=== PATIENT | female | born 1955 | race Caucasian/White ===

== ENCOUNTER 2023-06-11 13:35 | Outpatient (OUT) | payer OTHER, SELFPAY ==
--- NOTE | 2023-06-11 13:46 | XR_ITS ---
[facility] [id number] Patient Name: ROBERT PATRICIO MRN: [id number] date: 1955 Sex: F Assigned Patient Location: [facility] Current Patient Location: Accession/Order Number: [id number] Exam Date: 06/11/2023 13:58 Report Date: 06/12/2023 08:51 At the request of: NICA HA Procedure: XR wrist LT min 3V PROCEDURE: XR wrist LT min 3V COMPARISON: None. HISTORY: Left Wrist Sprain FINDINGS: BONES:No acute fracture or dislocation. Moderate to severe degenerative change of the medial carpus most significant at the first carpometacarpal joint SOFT TISSUES:Negative. No visible soft tissue swelling. EFFUSION:None visible. OTHER: Negative. 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
== END 2023-06-11 13:36 | disposition home or self-care (01) ==
LOC: RAD 13:39
PROVIDERS: PCP Family Medicine; Visit Provider Nurse Practitioner Family
DX: S63.502A Unspecified sprain of left wrist, initial encounter (principal)
CPT/HCPCS: 73110

== ENCOUNTER 2023-07-04 11:58 | Outpatient (OUT) | payer OTHER, SELFPAY ==
--- OUTSIDE RECORDS SUMMARY | 2023-07-04 12:02 | XMS_ITS | CCD ---
Author Name Unknown Address [address] [place] [address] Organization [facility] Care Team Providers Care Vascular Neurologist Name Role Phone ROSEANN DRUMMOND Unavailable Unavailable PARISH BEAN Unavailable Unavailable PARISH BEAN Unavailable Unavailable Christina Chew Primary Care Provider [phone] Christina Chew MD Primary Care Provider Christina Chew MD Primary Care Provider Christina Chew MD Primary Care Provider CHRISTINA CEHW Primary Care Unavailable CHRISTINA CHEW Referring Unavailable MARYANNE TIWARI Attending Unavailable Christina Chew MD Primary Care Provider CHRISTINA CHEW Primary Care Unavailable LEO PEREZ Referring Unavailable CHRISTINA CHEW Referring Unavailable CHRISTINA CHEW Attending Unavailable CHRISTINA CHEW Primary Care Unavailable ROSE MARY FLORES Attending Unavailable CHRISTINA CHEW Referring Unavailable ROSE MARY FLORES Referring Unavailable Jacqueline Padilla Attending Unavailable Allergies Allergy Classification Reported Allergen(s) Allergy Type Date of Onset Reaction(s) Facility (2 sources) Penicillin; Translations: [PENICILLIN] Drug Allergy 8 [facility] Repository (12 sources) Penicillins Propensity to adverse reactions to drug 2 [place] [place] (1 source) Penicillins Propensity to adverse reactions to drug 2 [facility] Medications Current Medications Medication Drug Class(es) Dates Sig (Normalized) Sig (Original) amLODIPine 5 mg oral tablet (5 sources) Dihydropyridine Calcium Channel Wally Start: 12-23-2022 take 1 tablet by mouth once daily amLODIPine (NORVASC) 5 MG tablet TAKE 1 TABLET BY MOUTH EVERY DAY 90 tablet 1 12/23/2022 Active Start: 12-25-2021 take 1 tablet by andriy th once daily amLODIPine (NORVASC) 5 MG tablet TAKE 1 TABLET BY MOUTH EVERY DAY 90 tablet 1 12/25/2021 Active Start: 12-28-2020 take 1 tablet by andriy th once daily amLODIPine (NORVASC) 5 MG tablet TAKE 1 TABLET BY MOUTH EVERY DAY 90 tablet 1 06/28/2021 Active betamethasone 0.5 mg/ml / clotrimazole 10 mg/ml topical cream (3 sources) Azole Antifungal, Corticosteroid Start: 06-29-2020 clotrimazole-betamethasone (LOTRISONE) 1-0.05 % cream Apply topically 2 times daily. 45 g 1 06/29/2020 Active hydroCHLOROthiazide 25 mg oral tablet (13 sources) Thiazide Diuretic Start: 12-23-2022 take 1 tablet by mouth once daily hydroCHLOROthiazide (HYDRODIURIL) 25 MG tablet TAKE 1 TABLET BY MOUTH EVERY DAY 90 tablet 1 12/23/2022 Active Start: 12-25-2021 take 1 tablet by andriy th once daily hydroCHLOROthiazide (HYDRODIURIL) 25 MG tablet TAKE 1 TABLET BY MOUTH EVERY DAY 90 tablet 1 12/25/2021 Active Start: 06-26-2021 take 1 tablet by andriy th once daily hydroCHLOROthiazide (HYDRODIURIL) 25 MG tablet TAKE 1 TABLET BY MOUTH EVERY DAY 90 tablet 1 06/26/2021 Active Start: 11-12-2019 take 1 tablet by andriy th once daily hydroCHLOROthiazide (HYDRODIURIL) 25 MG tablet TAKE 1 TABLET BY MOUTH EVERY DAY 90 tablet 1 12/28/2020 Active levothyroxine sodium 0.112 mg oral tablet (13 sources) l-Thyroxine Start: 12-26-2022 take 1 tablet by mouth once daily levothyroxine (SYNTHROID) 112 MCG tablet TAKE 1 TABLET BY MOUTH EVERY DAY 90 tablet 1 12/26/2022 Active Start: 01-11-2022 take 1 tablet by andriy th once daily levothyroxine (SYNTHROID) 112 MCG tablet TAKE 1 TABLET BY MOUTH EVERY DAY 90 tablet 1 01/11/2022 Active Start: 07-13-2021 take 1 tablet by andriy th once daily levothyroxine (SYNTHROID) 112 MCG tablet TAKE 1 TABLET BY MOUTH EVERY DAY 90 tablet 1 07/13/2021 Active Start: 11-08-2019 take 1 tablet by andriy th once daily levothyroxine (SYNTHROID) 112 MCG tablet TAKE 1 TABLET BY MOUTH EVERY DAY 90 tablet 1 12/28/2020 Active montelukast 10 mg oral tablet (13 sources) Leukotriene Receptor Antagonist Start: 11-06-2021 take 1 tablet by mouth once daily montelukast (SINGULAIR) 10 MG tablet Indications: Seasonal allergies TAKE 1 TABLET BY MOUTH EVERY DAY AT NIGHT 90 tablet 1 11/06/2021 Active Start: 05-14-2021 take 1 tablet by andriy th once daily montelukast (SINGULAIR) 10 MG tablet Indications: Seasonal allergies TAKE 1 TABLET BY MOUTH EVERY DAY AT NIGHT 90 tablet 1 05/14/2021 Active Start: 07-01-2019 take 1 tablet by andriy th once daily montelukast (SINGULAIR) 10 MG tablet Indications: Seasonal allergies TAKE 1 TABLET BY MOUTH EVERY DAY AT NIGHT 90 tablet 1 11/10/2020 Active Problems Problem Classification Problem Date Documented Da te Episodic/Chronic Disorders of lipid metabolism (14 sources) Hypercholesterolem ia; Translations: [Pure hypercholesterolem ia, unspecified] Onset: 05-14-2018 05-14-2018 Chronic Essential hypertension (14 sources) Essential hypertension; Translations: [Essential (primary) hypertension] Onset: 02-18-2017 02-18-2017 Chronic Nonmalignant breast conditions (1 source) Large breast; Translations: [Hypertrophy of breast] Episodic Other nervous system disorders (2 sources) Carpal tunnel syndrome, bilateral upper limbs; Translations: [Carpal tunnel syndrome, bilateral upper limbs] Onset: 04-09-2018 Other non-traumatic joint disorders (1 source) Knee pain; Translations: [Acute pain of left knee] Episodic Other screening for suspected conditions (not mental disorders or infectious disease) (3 sources) Patient encounter status; Translations: [Encounter for screening mammogram for malignant neoplasm of breast] Onset: 01-24-2023 Episodic Regional enteritis and ulcerative colitis (12 sources) Ulcerative colitis; Translations: [Ulcerative colitis, unspecified, without complications] Onset: 07-04-2011 03-09-2015 Chronic Residual codes; unclassified (2 sources) Edema of lower extremity; Translations: [Edema of left lower extremity] Episodic Residual codes; unclassified (1 source) Localized edema; Translations: [Edema of left lower extremity] Episodic Spondylosis; intervertebral disc disorders; other back problems (1 source) Chronic back pain ; Translations: [Dorsalgia, unspecified] Episodic Sprains and strains (2 sources) Strain of muscle, fascia and tendon at neck level, initial encounter; Translations: [Strain of muscle, fascia and tendon at neck level, initial encounter] Onset: 04-09-2018 Episodic Thyroid disorders (15 sources) Hypothyroidism; Translations: [Hypothyroidism, unspecified] Onset: 03-23-2015 03-23-2015 Chronic Unclassified (1 source) Patient encounter status; Translations: [Visit for screening mammogram] Results Test Name Value Interpretation Reference Range Facility Consent for Treatmenton 05-09 Consent for Treatment [id number] .00TIFF Normal [facility] Discharge Instructionson Discharge Instructions [id number]# 1.00TIFF Normal [facility] ED Clinical Summaryon 2022 ED Clinical Summary [place] [id number] ED Clinical Summary Person Information Name: HAYDEE PATRICIO/[facility] Age: 67 Years : 1955 Sex: Female Language: Panamanian PCP: CHRISTINA CHEW MD Marital Status: Visit Id: Visit Reason: Fall; Wrist pain-swelling; Wrist injury - Minor; FALL- LEFT WRIST INJURY Speciality: Acuity: 4 Enc Type: Emergency Med Service: Emergency Arrival: 05/25/2023 11:02:52 Discharge: 05/25/2023 13:31:09 LOS: 000 02:29 Checkin: 05/25/2023 11:02:52 Checkout: 05/25/2023 13:31:09 Dispo Type: Home (Routine DC) EVENTS: Event Name Event Status Request Date/Time Start Date/Time Complete Date/Time Arrive Complete 05/25/2023 11:02:52 05/25/2023 11:02:52 05/25/2023 11:02:52 Document Home Meds Request 05/25/2023 11:02:52 Triage Complete 05/25/2023 11:02:52 05/25/2023 11:21:22 05/25/2023 11:21:22 Registration Complete 05/25/2023 11:11:52 05/25/2023 11:11:52 05/25/2023 11:11:52 Reg Complete Request 05/25/2023 11:11:52 Reg Bed Request Complete 05/25/2023 11:11:52 05/25/2023 11:11:52 05/25/2023 11:11:52 Workers Comp Request 05/25/2023 11:21:23 X-Ray Complete 05/25/2023 11:24:29 05/25/2023 11:26:29 05/25/2023 11:35:01 Wet Read Request 05/25/2023 11:35:01 Dr Exam Complete 05/25/2023 11:54:38 05/25/2023 11:54:38 05/25/2023 11:54:38 Registration Start 05/25/2023 11:54:38 05/25/2023 11:54:59 Bed Assign Complete 05/25/2023 11:54:59 05/25/2023 11:54:59 05/25/2023 11:54:59 RN Exam Complete 05/25/2023 11:54:59 05/25/2023 12:35:22 05/25/2023 12:35:22 Discharge Complete 05/25/2023 12:53:44 05/25/2023 13:31:16 05/25/2023 13:31:16 Transfer Complete 05/25/2023 13:31:16 05/25/2023 13:31:16 05/25/2023 13:31:16 ADDRESS: [facility] [address] [place] [id number] [facility] DOC NOTES: MEDICAL INFORMATION: Prescriptions Given: Medications to Continue with No Changes Other Medications hydrochlorothiazide 25 Milligram By Mouth every day. levothyroxine 112 Microgram By Mouth every day. mesalamine (Lialda 1.2 g oral enteric coated tablet) 2 Tablets By Mouth every day. Refills: 1. PATIENT EDUCATION INFORMATION: Instructions: Wrist Splint or Brace, Adult; Wrist Sprain, Adult Follow up: With: Address: When: Occupational Health: [facility] [phone] In 2 days 05/27/2023 Comments: Return to the emergency room if your pain gets worse or any new symptoms. With: Address: When: CHRISTINA CHEW [address] [place] [address] [place] (1) In 3 days DIAGNOSIS: 1:Left wrist sprain [facility] ED Note-Physicianon 05-25-20 ED Note-Physician Basic Information Time Seen: Jacqueline Padilla M.D. 05/25/2023 11:54 Chief Complaint Pt presents to ED with complaints of left wrist pain after injury while working yesterday morning. History of Present Illness The patient is 67-year-old female who presented to the emergency room with left wrist pain. The patient states she works for the [employer] and yesterday she was stepping on the curb where her heel hit the curb and she lost her balance fell backward. The patient states she landed on her left hand. She denies hitting her head. Denies any headache, denies any neck pain. The patient denies any back pain. She points on the dorsal aspect of the wrist for the pain. The patient denies any other associated symptoms or any other injuries. Review of Systems Additional ROS info: Except as noted in the above Review of Systems and in the History of Present Illness all other systems have been reviewed and are negative or noncontributory. Physical Exam Vitals & Measurements T: 37.8 ?C(Oral) HR: 82(Peripheral) RR: 18 BP: 131/85 SpO2: 96% HT: 167 cm WT: 84 kg BMI: 30.12 General: alert, no acute distress Skin: warm, dry Head: no trauma, normocephalic Neck: Trachea midline, no tenderness, supple Eye: normal conjunctiva, sclera clear Cardiovascular: regular rate and rhythm Respiratory: Lungs CTA, respirations non labored, breath sounds equal Extremities: no deformity, there is swelling on the dorsal aspect of the left wrist with generalized tenderness to palpation on the dorsal aspect of the wrist. Full range of motion. Neurological: Alert and oriented, speech normal, no focal neuro deficits Psychiatric: cooperative, affect appropriate for age Medical Decision Making MEDICAL DECISION MAKING Number and Complexity of Problems Differential Diagnosis: [] [facility] Data External documents reviewed: [] My EKG interpretation: [] My CT interpretation: [] My X-ray interpretation: [] My Ultrasound interpretation: [] Decision rules/scores evaluated: [] Discussed with: [] Treatment and Disposition ED Course: The patient presented with left wrist injury. The x-ray shows no fracture no dislocation. Velcro splint was applied. The patient declined pain medication in the emergency room. Will discharge patient home follow-up with occupational health. She is instructed to return to the emergency room if her pain gets worse or any new symptoms. Shared decision making: [] Code status: [] Assessment/Plan 1. Left wrist sprain (S63.502A: Unspecified sprain of left wrist, initial encounter) Orders: Splint Application Wrist XR Wrist 3+ Views Left Disposition Plan Patient Discharge Condition Stable Discharge Disposition Discharge home Discharge Prescription List Prescriptions No active prescription medications Follow-up With When Contact Information Occupational Health: [facility] [phone] In 2 days 05/27/2023 EST Additional Instructions: Return to the emergency room if your pain gets worse or any new symptoms. CHRISTINA CHEW In 3 days [address] [place] [address] [facility] (1) Additional Instructions: Patient Education Wrist Splint or Brace, Adult Wrist Sprain, Adult Problem List/Past Medical History Ongoing No qualifying data Historical menopause Procedure/Surgical History section, Hysterectomy, left toe surgery. Medications Inpatient No active inpatient medications Home hydrochlorothiazide, 25 mg, Oral, Daily levothyroxine, 112 mcg, Oral, Daily Lialda 1.2 g oral enteric coated tablet, 2.4 gm= 2 tab(s), Oral, Daily, 1 refills Allergies penicillin (Rash) Social History Alcohol - Medium Risk, 07/03/2013 Current, Wine, Daily, 07/03/2013 Substance Abuse - Denies Substance Abuse, 07/12/2010 Tobacco - Denies Tobacco Use, 07/12/2010 Lab Results No qualifying data available. Diagnostic Results XR Wrist 3+ Views Left 05/25/23 12:14:27 : No fracture, dislocation or other acute abnormality Read By: Jacqueline Padilla M.D. 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 NO FRACTURE. EXAM: Left wrist, 4 views. CLINICAL HISTORY: Pain, Traumatic COMPARISON: None FINDINGS: AP, lateral, oblique and navicular views of the left wrist. Mild osteopenia. Narrowing of first carpal metacarpal joint with hypertrophic osseous change and increase sclerosis of the opposing articular surfaces. No fracture, dislocation, or bone lesion. Ordering Provider: Jacqueline Padilla Signed By: Ousmane Nunez MD [facility] Comment on above: Result Comment: Elec tronically Signed By: Valerie Capps, Jacqueline Wolfe\.br\Date and Time Signed: 05/25/23 12:54 EST ED Patient Education Noteon 05-25-2023 ED Patient Education Note Orthopedics Wrist Splint or Brace, Adult A wrist splint or brace is a device that prevents your wrist from moving. A splint supports your wrist like a cast, but is more flexible and can be adjusted more easily than a cast. A wrist brace provides support as well but is generally less rigid. A brace is given for local intermodal truck driver use while a splint is given for short term use. Wrist splints and braces can be removed or loosened. A splint or brace is held in place with an elastic band or straps. The supporting part of a splint or brace does not always completely surround your wrist. You may need a wrist splint or brace if you have hurt your wrist or if you have a condition that causes swelling. The wrist splint or brace may be worn: ? To support your wrist. ? To protect your injury. ? To prevent further injury. ? To prevent movement. ? To reduce pain. ? To help with healing. It is important to follow instructions from your health care provider about when to wear the splint or brace to make sure your wrist heals correctly. What are the risks? The most dangerous risk of wearing a splint or brace is reduced blood flow to your wrist or hand. This can happen if there is a lot of swelling or if the splint or brace is too tight. Reduced blood supply results in a condition called compartment syndrome and can cause permanent damage. Symptoms include: ? Pain that is getting worse. ? Tingling and numbness. ? Changes in skin color, including paleness or a bluish color. ? Cold fingers. Other problems can include: ? Skin irritation that can cause itching, rash, skin sores, or skin infection. ? Wrist stiffness. This can occur if you have worn a splint for a long time. ? Wrist weakness. How to wear your wrist splint or brace Your wrist splint or brace should be tight enough to support your wrist without blocking your blood supply. How long you need to wear the splint or brace depends on the type of wrist problem you have. Your health care provider will instruct you about how to wear your wrist splint or brace and how long to wear it. ? Wear the splint or brace as told by your health care provider. Remove it only as told by your health care provider. ? Loosen the splint or brace if your fingers tingle, become numb, or turn cold and blue. ? Do not stick anything inside the splint or brace to scratch your skin. Doing that increases your risk of infection. ? Check the skin under the splint or brace for any redness or blisters every time you take off the splint. Tell your health care provider about any concerns. ? Keep the splint clean. ? If the splint or brace is not waterproof: ? Do not let it get wet. ? Cover it with a watertight covering when you take a bath or a shower. General recommendations ? Do not put pressure on any part of the splint until it is fully hardened. This may take several hours. ? Follow directions from your health care provider or the splint bull gang worker for cleaning and caring for your splint or brace. It is important to clean it regularly. Make sure it is completely dry before putting in on. Follow these instructions at home: Managing pain, stiffness, and swelling ? If directed, put ice on the injured area. ? If you a have a removable splint or brace, remove it as told by your health care provider. ? Put ice in a plastic bag. ? Place a towel between your skin and the bag. ? Leave the ice on for 20 minutes, 2?3 times a day. ? Remove the ice if your skin turns bright red. This is very important. If you cannot feel pain, heat, or cold, you have a greater risk of damage to the area. ? Move your fingers often to avoid stiffness and to lessen swelling. ? Raise the injured area above the level of your heart while you are sitting or lying down. Activity ? Do exercises as told by your health care provider. ? Ask your health care provider when it is safe to drive with a splint or brace on your wrist. ? Return to your normal activities as told by your health care provider. Ask your health care provider what activities are safe for you. General instructions ? Do not use the injured hand to do heavy work, such as lifting, pulling, or pushing. ? Do not use any products that contain nicotine or tobacco, such as cigarettes, e-cigarettes, and chewing tobacco. These can delay bone healing. If you need help quitting, ask your health care provider. ? Take rrni-ynx-dirfpvz and prescription medicines only as told by your health care provider. ? Keep all follow-up visits. This is important. Contact a health care provider if: ? You have wrist pain or swelling that does not go away. ? The skin around or under your splint becomes red, itchy, or moist. ? You have chills or a fever. ? Your splint or brace feels too tight or too loose. ? Your splint or brace gets damaged. Get help right away if: ? You have pain that is getting worse. ? You have (more content not included)... [facility] ED Patient Summaryon 023 ED Patient Summary [place] [id number] Patient Discharge Instructions Person Information Name: HAYDEE PATRICIO Age: 67 Years Arrival Date: 05/25/2023 11:02:52 Discharge Diagnosis: 1:Left wrist sprain Primary Care Physician: MILTON BURR, CHRISTINA Le Provider Information Primary Provider: Jacqueline Padilla M.D. Advanced Stenotypist:None The exam and treatment you received in the Emergency Department were for an urgent problem and are not intended as complete care. It is important that you follow up with a doctor, nurse practitioner, or physician?s social media assistant for ongoing care. If your symptoms become worse or you do not improve as expected and you are unable to reach your usual health care provider, you should return to the Emergency Department. We are available 24 hours a day. HAYDEE PATRICIO has been given the following list of patient education materials, prescriptions and follow-up instructions: Follow-up Instructions: With: Address: When: Occupational Health: [facility] [phone] In 2 days 05/27/2023 Comments: Return to the emergency room if your pain gets worse or any new symptoms. With: Address: When: CHRISTINA CHEW [address] [place] [address] [place] [address] [facility] (1) In 3 days In the event that this physician does not participate in your insurance network, please consult with your insurance company to find a nearby participating provider. Patient Education Materials: Wrist Splint or Brace, Adult; Wrist Sprain, Adult A MESSAGE TO ALL PATIENTS REGARDING OPIOIDS PRESCRIPTION OPIOIDS: WHAT YOU NEED TO KNOW Prescription opioids can be used to help relieve wduamprc-tm-tjtqzr pain and are often prescribed following a surgery or injury, or for certain health conditions. These medications can be an important part of the treatment but also come with serious risks. It is important to work with your healthcare provider to make sure you are getting the safest, most effective care. WHAT ARE THE RISKS AND SIDE EFFECTS OF OPIOID USE? Prescription opioids carry serious risks of addiction and overdose, especially with prolonged use. An opioid overdose, often marked by slowed breathing, can cause sudden . The use of prescription opioids can have a number of side effects as well, even when taken as directed: ? Tolerance?meaning you might need to take more of the medication for the same pain relief ? Physical dependence?meaning you have symptoms of withdrawal when a medication is stopped ? Increased sensitivity to pain ? Constipation ? Nausea, vomiting, and dry mouth ? Sleepiness and dizziness ? Confusion ? Depression ? Low levels of testosterone that can result in lower sex drive, energy, and strength ? Itching and sweating RISKS ARE GREATER WITH: ? History of drug misuse, substance use disorder, or overdose ? Mental health conditions (such as depression or anxiety) ? Sleep apnea ? Older age (65 years and older) ? Avoid alcohol while taking prescription opioids. Also, unless specifically advised by your health care provider, medications to avoid include: ? Benzodiazepines (such as Xanax or Valium) ? Muscle relaxants (such as Soma or Flexeril) ? Hypnotics (such as Ambien or Lunesta) ? Other prescription opioids KNOW YOUR OPTIONS Talk to your health care provider about ways to manage your pain that don?t involve prescription opioids. Some of these options may actually work better and have fewer risks and side effects. Options may include: ? Pain relievers such as acetaminophen, ibuprofen, and naproxen ? Some medication that are also used for depression or seizures ? Physical therapy and exercise ? Cognitive behavioral therapy, a psychological, goal-directed approach, in which patients learn how to modify physical, behavioral, and emotional triggers of pain and stress. IF YOU ARE PRESCRIBED OPIOIDS FOR PAIN: ? Never take opioids in greater amounts or more often than prescribed. ? Follow up with your primary health care provider. o Work together to create a plan on how to manage your pain. o Talk about ways to help manage your pain that don?t involve prescription opioids. o Talk about any and all concerns and side effects. ? Help prevent misuse and abuse o Never sell or share prescription opioids. o Never use another person?s prescription opioids. ? Store prescription opioids in a secure place and out of reach of others (this may include visitors, children, friends, and family). ? Safely dispose of unused prescription opioids: Find your community drug take-back program or your pharmacy mail-back program, or flush them down the toilet, following guidance from the Food and Drug Administration (www.fda.gov/Drugs/Re sourcesForYou). ? Visit www.cdc.gov/drugoverd ose to learn about the risks of opioids abuse and overdose. ? If you believ (more content not included)... 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 NO FRACTURE. EXAM: Left wrist, 4 views. CLINICAL HISTORY: Pain, Traumatic COMPARISON: None FINDINGS: AP, lateral, oblique and navicular views of the left wrist. Mild osteopenia. Narrowing of first carpal metacarpal joint with hypertrophic osseous change and increase sclerosis of the opposing articular surfaces. No fracture, dislocation, or bone lesion. Ordering Provider: Jacqueline Padilla FINAL REPORT Dictated: 05/25/2023 12:32 pm Ousmane Nunez MD Signed (Electronic Signature): 05/25/2023 12:32 pm Signed by: Ousmane Nunez MD Transcribed by: DP Technologist: TRINIDAD Technical Comments Radiation Dose: Ka,r in mGy = na DAP = na Normal [facility] CBC with Diffon 03-14-2023 Abs. Basophil 0.04 k/uL Normal 0.00-0.20 [facility] Comment on above: Performed By: #### Reilly FAST, CDP, TSHX, CP #### [facility] [address] [id number] Regulator Assembler: Gilbert Epperson MD #### LIPR #### [place] [id number] Regulator Assembler: Yariel Godinez MD Abs.Imm.Granulocyte 0.02 k/uL Normal 0.00-0.30 [facility] Comment on above: Performed By: #### Reilly FAST, CDP, TSHX, CP #### [facility] [address] [id number] Regulator Assembler: Gilbert Epperson MD #### LIPR #### [place] [id number] Regulator Assembler: Yariel Godinez MD Abs.Neutrophil (Seg) 3.26 k/uL Normal 2.5-7.0 [facility] Comment on above: Performed By: #### Z FAST, CDP, TSHX, CP #### [facility] [address] [place], [place] [id number] Regulator Assembler: Gilbert Epperson MD #### LIPR #### [address] [id number] Regulator Assembler: Yariel Godinez MD Basophils/100 WBC (Bld) 1 % Normal 0-2 [facility] Comment on above: Performed By: #### Z FAST, CDP, TSHX, CP #### [facility] [address] [place] [address] Regulator Assembler: Gilbert Epperson MD #### LIPR #### [place] [id number] Regulator Assembler: Yariel Godinez MD Eosinophils (Bld) [#/Vol] 0.19 10*3/uL Normal 0.00-0.40 [facility] Comment on above: Performed By: #### Z FAST, CDP, TSHX, CP #### [facility] [address] [place] [address] Regulator Assembler: Gilbert Epperson MD #### LIPR #### [place] [address] Regulator Assembler: Yariel Godinez MD Eosinophils/100 WBC (Bld) 4 % Normal 0-5 [facility] Comment on above: Performed By: #### Z FAST, CDP, TSHX, CP #### [facility] [address] [id number] Regulator Assembler: Gilbert Epperson MD #### LIPR #### [address] [id number] Regulator Assembler: Yariel Godinez MD Erythrocyte distribution width (RBC) [Ratio] 11.9 % Low 12.1-15.2 [facility] Comment on above: Performed By: #### Z FAST, CDP, TSHX, CP #### [facility] [address] [place], [place] [id number] Regulator Assembler: Gilbert Epperson MD #### LIPR #### [address] [id number] Regulator Assembler: Yariel Godinez MD Hematocrit (Bld) [Volume fraction] 39.0 % Normal 36.0-46.0 [facility] Comment on above: Performed By: #### Z FAST, CDP, TSHX, CP #### [facility] [address] [place] [address] Regulator Assembler: Gilbert Epperson MD #### LIPR #### [place] [id number] Regulator Assembler: Yariel Godinez MD Hemoglobin (Bld) [Mass/Vol] 13.9 g/dL Normal 12.0-16.0 [facility] Comment on above: Performed By: #### Z FAST, CDP, TSHX, CP #### [facility] [address] [place], [place] [id number] Regulator Assembler: Gilbert Epperson MD #### LIPR #### [address] [id number] Regulator Assembler: Yariel Godinez MD Immature granulocytes/100 WBC (Bld) 0 % Normal 0-5 [facility] Comment on above: Performed By: #### Z FAST, CDP, TSHX, CP #### [facility] [address] [id number] Regulator Assembler: Gilbert Epperson MD #### LIPR #### [address] [id number] Regulator Assembler: Yariel Godinez MD Lymphocytes (Bld) [#/Vol] 1.50 10*3/uL Normal 1.00-4.80 [facility] Comment on above: Performed By: #### Z FAST, CDP, TSHX, CP #### [facility] [address] [place], [place] [id number] Regulator Assembler: Gilbert Epperson MD #### LIPR #### [address] [id number] Regulator Assembler: Yariel Godinez MD Lymphocytes/100 WBC (Bld) 28 % Normal 15-40 [facility] Comment on above: Performed By: #### Z FAST, CDP, TSHX, CP #### [facility] [address] [place] [address] Regulator Assembler: Gilbert Epperson MD #### LIPR #### [address] [id number] Regulator Assembler: Yariel Godinez MD MCH (RBC) [Entitic mass] 32.1 pg Normal 26.0-34.0 [facility] Comment on above: Performed By: #### Z FAST, CDP, TSHX, CP #### [facility] [address] [place] [address] Regulator Assembler: Gilbert Epperson MD #### LIPR #### [address] [address] Regulator Assembler: Yariel Godinez MD MCHC (RBC) [Mass/Vol] 35.6 g/dL Normal 31.0-37.0 [facility] Comment on above: Performed By: #### Z FAST, CDP, TSHX, CP #### [facility] [address] [place] [address] Regulator Assembler: Gilbert Epperson MD #### LIPR #### [address] [id number] Regulator Assembler: Yariel Godinez MD MCV (RBC) [Entitic vol] 90.1 fL Normal 80.0-100.0 [facility] Comment on above: Performed By: #### Reilly FAST, CDP, TSHX, CP #### [facility] [address] [place], [place] [id number] Regulator Assembler: Gilbert Epperson MD #### LIPR #### [address] [id number] Regulator Assembler: Yariel Godinez MD Monocytes (Bld) [#/Vol] 0.37 10*3/uL Normal 0.00-1.00 [facility] Comment on above: Performed By: #### Reilly FAST, CDP, TSHX, CP #### [facility] [address] [place] [address] Regulator Assembler: Gilbert Epperson MD #### LIPR #### [address] [address] Regulator Assembler: Yariel Godinez MD Monocytes/100 WBC (Bld) 7 % Normal 4-8 [facility] Comment on above: Performed By: #### Reilly FAST, CDP, TSHX, CP #### [facility] [address] [place] [address] Regulator Assembler: Gilbert Epperson MD #### LIPR #### [address] [address] Regulator Assembler: Yariel Godinez MD Neutrophil (Seg) 61 % Normal 47-75 [facility] Comment on above: Performed By: #### Reilly FAST, CDP, TSHX, CP #### [facility] [address] [place] [address] Regulator Assembler: Gilbert Epperson MD #### LIPR #### [address] [id number] Regulator Assembler: Yariel Godinez MD Platelet mean volume (Bld) [Entitic vol] 9.2 fL Normal 6.0-12.0 [facility] Comment on above: Performed By: #### Reilly FAST, CDP, TSHX, CP #### [facility] [address] [place], [place] [phone] Regulator Assembler: Gilbert Epperson MD #### LIPR #### [address] [address] Regulator Assembler: Yariel Godinez MD Platelets (Bld) [#/Vol] 247 10*3/uL Normal 140-450 [facility] Comment on above: Performed By: #### Reilly FAST, CDP, TSHX, CP #### [facility] [address] [place], [place] [id number] Regulator Assembler: Gilbert Epperson MD #### LIPR #### [address] [address] Regulator Assembler: Yariel Godinez MD RBC (Bld) [#/Vol] 4.33 10*6/uL Normal 4.00-5.20 [facility] Comment on above: Performed By: #### Reilly FAST, CDP, TSHX, CP #### [facility] [address] [place], [place] [phone] Regulator Assembler: Gilbert Epperson MD #### LIPR #### [address] [address] Regulator Assembler: Yariel Godinez MD WBC (Bld) [#/Vol] 5.4 10*3/uL Normal 3.5-11.0 [facility] Comment on above: Performed By: #### Reilly FAST, CDP, TSHX, CP #### [facility] [address] [place], [place] [id number] Regulator Assembler: Gilbert Epperson MD #### LIPR #### [address] [address] Regulator Assembler: Yariel Godinez MD Comp Metabolic Profon 2022 Albumin [Mass/Vol] 4.5 g/dL Normal 3.5-5.2 [facility] Comment on above: Performed By: #### Z FAST, CDP, TSHX, CP #### [facility] [address] [place], [place] [phone] Regulator Assembler: Gilbert Epperson MD #### LIPR #### [address] [id number] Regulator Assembler: Yariel Godinez MD Alkaline Phos 85 U/L Normal 35-104 [facility] Comment on above: Performed By: #### Reilly FAST, CDP, TSHX, CP #### [facility] [address] [place], [place] [id number] Regulator Assembler: Gilbert Epperson MD #### LIPR #### [address] [address] Regulator Assembler: Yariel Godinez MD ALT [Catalytic activity/Vol] 21 U/L Normal 5-33 [facility] Comment on above: Performed By: #### Reilly FAST, CDP, TSHX, CP #### [facility] [address] [place] [address] Regulator Assembler: Gilbert Epperson MD #### LIPR #### [address] [address] Regulator Assembler: Yariel Godinez MD Anion gap [Moles/Vol] 12 mmol/L Normal 9-17 [facility] Comment on above: Performed By: #### Z FAST, CDP, TSHX, CP #### [facility] [address] [place], [place] [id number] Regulator Assembler: Gilbert Epperson MD #### LIPR #### [address] [id number] Regulator Assembler: Yariel Godinez MD AST [Catalytic activity/Vol] 18 U/L Normal <32 [facility] Comment on above: Performed By: #### Z FAST, CDP, TSHX, CP #### [facility] [address] [place], [place] [phone] Regulator Assembler: Gilbert Epperson MD #### LIPR #### [address] [id number] Regulator Assembler: Yariel Godinez MD Bilirubin [Mass/Vol] 0.7 mg/dL Normal 0.3-1.2 [facility] Comment on above: Performed By: #### Reilly FAST, CDP, TSHX, CP #### [facility] [address] [place], [place] [phone] Regulator Assembler: Gilbert Epperson MD #### LIPR #### [address] [id number] Regulator Assembler: Yariel Godinez MD BUN/CRE Ratio 24 High 9-20 [facility] Comment on above: Performed By: #### Reilly FAST, CDP, TSHX, CP #### [facility] [address] [place], [place] 7007[address] Regulator Assembler: Gilbert Epperson MD #### LIPR #### [address] [id number] Regulator Assembler: Yariel Godinez MD Calcium [Mass/Vol] 9.7 mg/dL Normal 8.6-10.4 [facility] Comment on above: Performed By: #### Z FAST, CDP, TSHX, CP #### [facility] [address] [place], [place] [phone] Regulator Assembler: Gilbert Epperson MD #### LIPR #### [address] [id number] Regulator Assembler: Yariel Godinez MD Chloride [Moles/Vol] 102 mmol/L Normal 98-107 [facility] Comment on above: Performed By: #### Z FAST, CDP, TSHX, CP #### [facility] [address] [place], [place] [phone] Regulator Assembler: Gilbert Epperson MD #### LIPR #### [address] [place], [place] 2726[address] Regulator Assembler: Yariel Godinez MD CO2 [Moles/Vol] 24 mmol/L Normal 20-31 [facility] Comment on above: Performed By: #### Z FAST, CDP, TSHX, CP #### [facility] [address] [place], [place] 0697[address] Regulator Assembler: Gilbert Epperson MD #### LIPR #### [address] [phone] Regulator Assembler: Yariel Godinez MD Creatinine [Mass/Vol] 0.8 mg/dL Normal 0.5-0.9 [facility] Comment on above: Performed By: #### Z FAST, CDP, TSHX, CP #### [facility] [address] [place] [address] Regulator Assembler: Gilbert Epperson MD #### LIPR #### [address] [phone] Regulator Assembler: Yariel Godinez MD GFR/1.73 sq M.predicted among non-blacks MDRD (S/P/Bld) [Vol rate/Area] mL/min/{1.73_m2} Normal >60 [facility] Comment on above: Result Comment: These results are not intended for use in patients <18 years of age. eGFR results are calculated without a race factor using the 2020 CKD-EPI equation. Careful clinical correlation is recommended, particularly when comparing to results calculated using previous equations. The CKD-EPI equation is less accurate in patients with extremes of muscle mass, extra-renal metabolism of creatine, excessive creatine ingestion, or following therapy that affects renal tubular secretion. Performed By: #### Z FAST, CDP, TSHX, CP #### [facility] [address] [place], [place] [phone] Regulator Assembler: Gilbert Epperson MD #### LIPR #### [address] [phone] Regulator Assembler: Yariel Godinez MD Glucose [Mass/Vol] 116 mg/dL High 70-99 [facility] Comment on above: Performed By: #### Z FAST, CDP, TSHX, CP #### [facility] [address] [place], [place] 94640[address] Regulator Assembler: Gilbert Epperson MD #### LIPR #### [address] [id number] Regulator Assembler: Yariel Godinez MD Potassium [Moles/Vol] 3.8 mmol/L Normal 3.7-5.3 [facility] Comment on above: Performed By: #### Z FAST, CDP, TSHX, CP #### [facility] [address] [place], [place] [phone] Regulator Assembler: Gilbert Epperson MD #### LIPR #### [address] [id number] Regulator Assembler: Yariel Godinez MD Protein [Mass/Vol] 7.0 g/dL Normal 6.4-8.3 [facility] Comment on above: Performed By: #### Z FAST, CDP, TSHX, CP #### [facility] [address] [place], [place] [phone] Regulator Assembler: Gilbert Epperson MD #### LIPR #### [address] [address] Regulator Assembler: Yariel Godinez MD Sodium [Moles/Vol] 138 mmol/L Normal 135-144 [facility] Comment on above: Performed By: #### Z FAST, CDP, TSHX, CP #### [facility] [address] [place] [address] Regulator Assembler: Gilbert Epperson MD #### LIPR #### [facility] [address] [place] [address] Regulator Assembler: Yariel Godinez MD Urea nitrogen [Mass/Vol] 19 mg/dL Normal 8-23 [facility] Comment on above: Performed By: #### Z FAST, CDP, TSHX, CP #### [facility] [address] [place], [place] [phone] Regulator Assembler: Gilbert Epperson MD #### LIPR #### [address] [address] Regulator Assembler: Yariel Godinez MD Lipid Profileon 03-14-2023 Cholesterol [Mass/Vol] 264 mg/dL High <200 [facility] Comment on above: Result Comment: Cholesterol Guidelines: <200 Desirable 200-240 Borderline >240 Undesirable Performed By: #### Z FAST, CDP, TSHX, CP #### [facility] [address] [place] [address] Regulator Assembler: Gilbert Epperson MD #### LIPR #### [address] [address] Regulator Assembler: Yariel Godinez MD Cholesterol in HDL [Mass/Vol] 78 mg/dL Normal >40 [facility] Comment on above: Result Comment: HDL Guidelines: <40 Undesirable 40-59 Borderline >59 Desirable Performed By: #### Z FAST, CDP, TSHX, CP #### [facility] [address] [place], [place] 2699[address] Regulator Assembler: Gilbert Epperson MD #### LIPR #### [address] [address] Regulator Assembler: Yariel Godinez MD Cholesterol in LDL [Mass/Vol] 157 mg/dL High 0-130 [facility] Comment on above: Result Comment: LDL Guidelines: <100 Desirable 100-129 Near to/above Desirable 130-159 Borderline >159 Undesirable Direct (measured) LDL and calculated LDL are not interchangeable tests. Performed By: #### Z FAST, CDP, TSHX, CP #### [facility] [address] [place] [address] Regulator Assembler: Gilbert Epperson MD #### LIPR #### [address] [phone] Regulator Assembler: Yariel Godinez MD Cholesterol.total/Chol esterol in HDL [Mass ratio] 3.4 {ratio} Normal <5 [facility] Comment on above: Performed By: #### Z FAST, CDP, TSHX, CP #### [facility] [address] [place] [address] Regulator Assembler: Gilbert Epperson MD #### LIPR #### [address] [id number] Regulator Assembler: Yariel Godinez MD Triglyceride [Mass/Vol] 146 mg/dL Normal <150 [facility] Comment on above: Result Comment: Triglyceride Guidelines: <150 Desirable 150-199 Borderline 200-499 High >499 Very high Based on AHA Guidelines for fasting triglyceride, March 2012. Performed By: #### Z FAST, CDP, TSHX, CP #### [facility] [address] [place], [place] [id number] Regulator Assembler: Gilbert Epperson MD #### LIPR #### [address] [id number] Regulator Assembler: Yariel Godinez MD Patient fasting?on 3 Patient fasting? yes Normal [facility] Comment on above: Performed By: #### Z FAST, CDP, TSHX, CP #### [facility] [address] [place] [address] Regulator Assembler: Gilbert Epperson MD #### LIPR #### [facility] [address] [place] [address] Regulator Assembler: Yariel Godinez MD TSH w/reflex to FT4on 2022 Thyroid Stim. Horm. 2.23 uIU/mL Normal 0.30-5.00 [facility] Comment on above: Performed By: #### Z FAST, CDP, TSHX, CP #### [facility] [address] [place] [address] Regulator Assembler: Gilbert Epperson MD #### LIPR #### [facility] [employer] [address] [place] [address] Regulator Assembler: Yariel Godinez MD [facility] DIGITAL SCREEN BILA TERALon 01-28-2023 [facility] DIGITAL SCREEN BILATERAL HISTORY: Screening. TECHNIQUE: Bilateral digital screening mammogram with CAD. 2-D and 3-D tomography. FINDINGS: Two views of each breast show scattered areas of fibroglandular density. BREAST DENSITY CODE: S Scattered No change from prior studies most recent of 04/11/2021. Suspicious calcifications: None. Suspicious mass: None. (If skin markers were applied, circles represent skin lesions and linear markers represent scars.) IMPRESSION: OVERALL ASSESSMENT: BIRADS: 1 Negative, no evidence of malignancy. A letter of notification will be mailed to the patient. Interpreted by: Erik Horta Jr., MD Signed by: Erik Horta Jr., MD 01/28/23 Final result Normal [facility] Basic Metabolic Panelon 09- Anion gap [Moles/Vol] 12 mmol/L 9 - 17 mmol/L [facility] Calcium [Mass/Vol] 9.6 mg/dL 8.6 - 10. 4 mg/dL [facility] Chloride [Moles/Vol] 104 mmol/L 98 - 10 7 mmol/L [facility] CO2 [Moles/Vol] 26 mmol/L 20 - 31 mmol/L [facility] Creatinine [Mass/Vol] 0.71 mg/dL 0.5 - 0.9 mg/dL [facility] GFR >60 60 - PI NF mL/min [facility] GFR Non- >60 60 - PINF mL/min [facility] GFR/1.73 sq M.predicted MDRD (S/P/Bld) [Vol rate/Area] [facility] Comment on above: Average GFR for 60-6 9 years old: 85 mL/min/1.73sq m Chronic Kidney Disease: <60 mL/min/1.73sq m Kidney failure: <15 mL/min/1.73sq m eGFR calculated using average adult body mass. Additional eGFR calculator available at: http://www.[employer]/Livestage_crcl_2011.htm Glucose [Mass/Vol] 103 mg/dL High 70 - 99 mg/dL [facility] [employer] Interpretation and review of laboratory results Abnormal [facility] Potassium [Moles/Vol] 4.0 mmol/L 3.7 - 5.3 mmol/L [facility] Sodium [Moles/Vol] 142 mmol/L 135 - 144 mmol/L [facility] Urea nitrogen (BldV) [Mass/Vol] 18 mg/dL 8 - 23 mg/dL [facility] Urea nitrogen/Creatinine (Bld) [Mass ratio] 25 High 9 - 20 [facility] TSHon 02-19-2022 TSH Qn 2.94 m[IU]/L [facility] DIGITAL SCREEN BILA TERALOrdered By: Christina Chew on 04-12-2021 BI-RADS 1 - Negative , no evidence of malignancy. Normal interval followup in 12 months. OVERALL ASSESSMENT- NEGATIVE A letter of notification will be sent to the patient regarding the results. [employer] Work Phone: HISTORY: Screening. TECHNIQUE: Bilateral digital screening mammogram with CAD. 2-D and 3-D tomography. FINDINGS: Two views of each breast show scattered areas of fibroglandular density. No change from prior studies, the most recent of 12/29/2019. Suspicious calcifications: None. Suspicious mass: None. (If skin markers were applied, circles represent skin lesions and linear markers represent scars.) [employer] Phone: [employer] Phone: VL DUP LOWER EXTREMITY VENOU S LEFTon 03-07-2020 [facility] Vascular Lower Extremities DVT Study Procedure Patient Name SINTIA JONES Date of Study 03/07/2020 A Date of 1955 Gender Female Age 64 year(s) Race Room Number US Height: 68 inch, 172.72 cm Corporate ID [id number] Weight: 164 pounds, 74.4 kg # Patient Acct [id number] BSA: 1.88 m^2 BMI: 24.94 kg/m^2 # MR # [id number] Water Operator IVETTE Oliver [facility] Interpreting Elodia Horta Physician Referring Referring Physician BEN LEGER * Nurse Practitioner Procedure Type of Study: Veins: Lower Extremities DVT Study, DUP LOWER EXTREMITY VENOUS LEFT. Patient Status:Out Patient. Technical Quality:Good visualization. Comments: ORDERING PHYSICIAN: DR JAVIER DUNAWAY INDICATION: SWELLING Conclusions Summary Superficial acute thrombus left small saphenous vein in the left calf. Negative for DVT left lower extremity and right groin. Ashford cyst left popliteal space. Signature - - - - Findings: Right Impression: Left Impression: The common femoral vein The common femoral, femoral, popliteal, tibials, is compressible with peroneal and saphenous veins were evaluated. normal doppler The proximal to distal lesser saphenous vein is responses. partial to non-compressible. There is flow detected at the proximal level and there is no flow detected at mid or distal. All other veins are compressible with normal doppler responses. There is an irregular hypoechoic fluid collection in the medial popliteal fossa 4.7 X 4.0 X 2.2. There is a tract that leads to the knee medially. Velocities are measured in cm/s ; Diameters are measured in cm Right Lower Extremities DVT Study Measurements Right 2D Measurements + +---- ------+ -+ + !Location !Visualized!Compressi bility!Thrombosis! + +---- ------+ -+ + !Common Femoral !Yes !Yes !None ! + +---- ------+ -+ + Right Doppler Measurements + --------+------+----- -+ + !Location !Signal!Reflux!Reflux (msec) ! + --------+------+----- -+ + !Common Femoral !Phasic! ! ! + --------+------+----- -+ + Left Lower Extremities DVT Study Measurements Left 2D Measurements + +---- ------+ -+ + !Location !Visualized!Compressi bility!Thrombosis! + +---- ------+ -+ + !Common Femoral !Yes !Yes !None ! + +---- ------+ -+ + !Prox Femoral !Yes !Yes !None ! + +---- ------+ -+ + !Mid Femoral !Yes !Yes !None ! + +---- ------+ -+ + !Dist Femoral !Yes !Yes !None ! + +---- ------+ -+ + !Deep Femoral !Yes !Yes !None ! + +---- ------+ -+ + !Popliteal !Yes !Yes !None ! + +---- ------+ -+ + !Sapheno Femoral Junction !Yes !Yes !None ! + +---- ------+ -+ + !PTV !Yes !Yes !None ! + +---- ------+ -+ + !Peroneal !Yes !Yes !None ! + +---- ------+ -+ + !Gastroc !Yes !Yes !None ! + +---- ------+ -+ + !GSV Thigh !Yes !Yes !None ! + +---- ------+ -+ + !GSV Knee !Yes !Yes !None ! + +---- ------+ -+ + !GSV Ankle !Yes !Yes !None ! + +---- ------+ -+ + !SSV !Yes !No !Acute ! + +---- ------+ -+ + Left Doppler Measurements + -------+------+------ + + !Location !Signal!Reflux!Reflux (msec) ! + -------+------+------ + + !Common Femoral !Phasic! ! ! + -------+------+------ + + !Prox Femoral !Phasic! ! ! + -------+------+------ + + !Popliteal !Phasic! ! ! + -------+------+------ + + [facility] [place], [place], [place] Incoming Cardio Results From Cpacs/Ge - 03/07/2020 4:27 PM EDT [facility] Vascular Lower Extremities DVT Study Procedure Patient Name SINTIA JONES Date of Study 03/07/2020 A Date of 1955 Gender Female Age 64 year(s) Race Room Number US Height: 68 inch, 172.72 cm Corporate ID [id number] Weight: 164 pounds, 74.4 kg # Patient Acct [id number] BSA: 1.88 m^2 BMI: 24.94 kg/m^2 # MR # [id number] Water Operator IVETTE Oliver Interpreting Elodia Horta Physician Referring Referring Physician CHRISTINA CHEW BEN * Nurse Practitioner Procedure Type of Study: Veins: Lower Extremities DVT Study, DUP LOWER EXTREMITY VENOUS LEFT. Patient Status:Out Patient. Technical Quality:Good visualization. Comments: ORDERING PHYSICIAN: DR JAVIER DUNAWAY INDICATION: SWELLING Conclusions Summary Superficial acute thrombus left small saphenous vein in the left calf. Negative for DVT left lower extremity and right groin. Ashford cyst left popliteal space. Signature - - - - Findings: Right Impression: Left Impression: The common femoral vein The common femoral, femoral, popliteal, tibials, is compressible with peroneal and saphenous veins were evaluated. normal doppler The proximal to distal lesser saphenous vein is responses. partial to non-compressible. There is flow detected at the proximal level and there is no flow detected at mid or distal. All other veins are compressible with normal doppler responses. There is an irregular hypoechoic fluid collection in the medial popliteal fossa 4.7 X 4.0 X 2.2. There is a tract that leads to the knee medially. Velocities are measured in cm/s ; Diameters are measured in cm Right Lower Extremities DVT Study Measurements Right 2D Measurements + +---- ------+ -+ + !Location !Visualized!Compressi bility!Thrombosis! + +---- ------+ -+ + !Common Femoral !Yes !Yes !None ! + +---- ------+ -+ + Right Doppler Measurements + --------+------+----- -+ + !Location !Signal!Reflux!Reflux (msec) ! + --------+------+----- -+ + !Common Femoral !Phasic! ! ! + --------+------+----- -+ + Left Lower Extremities DVT Study Measurements Left 2D Measurements + +---- ------+ -+ + !Location !Visualized!Compressi bility!Thrombosis! + +---- ------+ -+ + !Common Femoral !Yes !Yes !None ! + +---- ------+ -+ + !Prox Femoral !Yes !Yes !None ! + +---- ------+ -+ + !Mid Femoral !Yes !Yes !None ! + +---- ------+ -+ + !Dist Femoral !Yes !Yes !None ! + +---- ------+ -+ + !Deep Femoral !Yes !Yes !None ! + +---- ------+ -+ + !Popliteal !Yes !Yes !None ! + +---- ------+ -+ + !Sapheno Femoral Junction !Yes !Yes !None ! + +---- ------+ -+ + !PTV !Yes !Yes !None ! + +---- ------+ -+ + !Peroneal !Yes !Yes !None ! + +---- ------+ -+ + !Gastroc !Yes !Yes !None ! + +---- ------+ -+ + !GSV Thigh !Yes !Yes !None ! + +---- ------+ -+ + !GSV Knee !Yes !Yes !None ! + +---- ------+ -+ + !GSV Ankle !Yes !Yes !None ! + +---- ------+ -+ + !SSV !Yes !No !Acute ! + +---- ------+ -+ + Left Doppler Measurements + -------+------+------ + + !Location !Signal!Reflux!Reflux (msec) ! + -------+------+------ + + !Common Femoral !Phasic! ! ! + -------+------+------ + + !Prox Femoral !Phasic! ! ! + -------+------+------ + + !Popliteal !Phasic! ! ! + -------+------+------ + + [place] D-Dimer, Quantitativeon 02-08 D-Dimer, Quant 0.38 [place], [place] Comment on above: When combined with a low clinical probability, a D dimer value of <0.50 mg/L FEU is considered negative for DVT and PE (negative predictive value of 98%, sensitivity of 97%). If this test is not being used to help rule out DVT and PE, then the following reference range should be utilized: 0.00 - 0.59 mg/L FEU. The D-Dimer assay is intended for use as an aid in the diagnosis of venous thromboembolism (DVT and PE) and the results should be interpreted in conjunction with the patient's medical history, clinical presentation, and other findings. Elevated levels of D-dimer activity can be seen in any state of coagulation activation and is not recommended in patients with therapeutic dose anticoagulant therapy for >24 hours, fibrinolytic therapy within the previous 7 days, trauma or surgery within the previous 4 weeks, disseminated malignancies, aortic aneurysm, sepsis, severe infections, pneumonia, severe skin infections, liver cirrhosis, advanced age, coronary disease, diabetes, and . A very low percentage of patients with DVT may yield D-dimer results below the cutoff of 0.5 mg/L FEU. This is known to be more prevalent in patients with distal DVT. Otheron 03-02-2020 Soft tissue swelling with no fracture or dislocation about the left knee or left ankle. Tiny plantar spur on the calcaneus. [place] EXAM: XR KNEE LEFT (MIN 4 VIEWS), XR ANKLE LEFT (MIN 3 VIEWS). HISTORY: M25.562. Edema, pain. COMPARISON: Left ankle 05/17/2009. TECHNIQUE: Left knee series includes standing views of both knees, 2 sunrise views of the left patella, 2 oblique views and a lateral view of the left knee (6 images), 3 views left ankle. FINDINGS: There is mild soft tissue swelling about the left knee and the left ankle. The ankle shows normal alignment without fracture or dislocation. 2 mm plantar spur on the calcaneus. The standing views of the knee show minimal degenerative changes, right greater than left. Normal sunrise view left patella. No joint effusion left knee. No fracture or dislocation. [facility] [employer] [place], [facility] Incoming Radiant Results From [employer] - 03/02/2020 4:53 PM EDT EXAM: XR KNEE LEFT (MIN 4 VIEWS), XR ANKLE LEFT (MIN 3 VIEWS). HISTORY: M25.562. Edema, pain. COMPARISON: Left ankle 05/17/2009. TECHNIQUE: Left knee series includes standing views of both knees, 2 sunrise views of the left patella, 2 oblique views and a lateral view of the left knee (6 images), 3 views left ankle. FINDINGS: There is mild soft tissue swelling about the left knee and the left ankle. The ankle shows normal alignment without fracture or dislocation. 2 mm plantar spur on the calcaneus. The standing views of the knee show minimal degenerative changes, right greater than left. Normal sunrise view left patella. No joint effusion left knee. No fracture or dislocation. IMPRESSION: Soft tissue swelling with no fracture or dislocation about the left knee or left ankle. Tiny plantar spur on the calcaneus. [facility] DIGITAL SCREEN W OR WO C AD BILATERALon 12-30-2019 BI-RADS 1 - Negative , no evidence of malignancy. Normal interval followup in 12 months. OVERALL ASSESSMENT- NEGATIVE A letter of notification will be sent to the patient regarding the results. [facility] HISTORY: Screening. TECHNIQUE: Bilateral digital screening mammogram with CAD. FINDINGS: Two views of each breast show scattered areas of fibroglandular density. No change from prior studies, the most recent of 08/19/2018. Suspicious calcifications: None. Suspicious mass: None. Benign calcifications: None. (If skin markers were applied, circles represent skin lesions and linear markers represent scars.) [facility] [place], [facility] Incoming Radiant Results From [employer] - 12/30/2019 2:40 PM EDT HISTORY: Screening. TECHNIQUE: Bilateral digital screening mammogram with CAD. FINDINGS: Two views of each breast show scattered areas of fibroglandular density. No change from prior studies, the most recent of 08/19/2018. Suspicious calcifications: None. Suspicious mass: None. Benign calcifications: None. (If skin markers were applied, circles represent skin lesions and linear markers represent scars.) IMPRESSION: BI-RADS 1 - Negative, no evidence of malignancy. Normal interval followup in 12 months. OVERALL ASSESSMENT- NEGATIVE A letter of notification will be sent to the patient regarding the results. [place] Lipid Panelon 11-15-2019 Cholesterol [Mass/Vol] 262 mg/dL High <200 [place] Comment on above: Cholesterol Guidelines: <200 Desirable 200-240 Borderline >240 Undesirable Cholesterol in HDL [Mass/Vol] 70 mg/dL >40 [place] Comment on above: HDL Guidelines: <40 Undesirable 40-59 Borderline >59 Desirable Cholesterol in LDL [Mass/Vol] 165 mg/dL High 0 - 130 mg/dL [place] Comment on above: LDL Guidelines: <100 Desirable 100-129 Near to/above Desirable 130-159 Borderline >159 Undesirable Direct (measured) LDL and calculated LDL are not interchangeable tests. Cholesterol in VLDL [Mass/Vol] NOT REPORTED 1 - 30 mg/dL [place] Cholesterol.total/Chol esterol in HDL [Mass ratio] 3.7 {ratio} <5 [place] Interpretation and review of laboratory results Abnormal [place] Triglyceride [Mass/Vol] 133 mg/dL <150 [place] Comment on above: Triglyceride Guidelines: <150 Desirable 150-199 Borderline 200-499 High >499 Very high Based on AHA Guidelines for fasting triglyceride, March 2012. Patient Fasting?on 0 Patient Fasting? yes [place] TSHon 11-15-2019 TSH Qn 4.68 m[IU]/L [place], [place] Progress Noteon 04-02-2018 HIM IP Note OR Activities Concierge Normal [facility] Progress Noteon 12-31-2017 HIM IP Note OR Activities Concierge Normal [facility] Progress Noteon 11-12-2017 HIM IP Note OR Activities Concierge Normal [facility] Vital Signs Date Time Vital Sign Value Performing Clinician Raz shaw 04-03-2022 14:15-0400 Body height 167.6 cm Maryanne Tiwari MD Work Phone: [facility] 04-03-2022 14:15-0400 Body mass index (BMI) [Ratio] 29.86 kg/m2 Maryanne Tiwari MD Work Phone: [facility] 04-03-2022 14:15-0400 Body temperature 98.91 [degF] Maryanne Tiwari MD Work Phone: [facility] 04-03-2022 14:15-0400 Body weight 83.92 kg Maryanne Tiwari MD Work Phone: [phone] [place] [address] 04-03-2022 14:15-0400 Diastolic blood pressure 87 mm[Hg] Maryanne Tiwari MD Work Phone: [facility] 04-03-2022 14:15-0400 Heart rate 100 /min Maryanne Tiwari MD Work Phone: [facility] 04-03-2022 14:15-0400 Systolic blood pressure 134 mm[Hg] Maryanne Tiwari MD Work Phone: [facility] Encounters Encounter Date Encounter Type Care Provider Facility Start: 05-25-2023 End: 05-25-2023 Emergency department patient visit Jacquelnie Padilla Facility:[facility] Start: 05-20-2023 End: 05-20-2023 ambulatory ROSE MARY FLORES Not Available Start: 03-14-2023 End: 03-15-2023 [facility] Start: 01-24-2023 End: 01-27-2023 [facility] Start: 01-24-2023 End: 01-26-2023 Subsequent hospital visit by physician Christina Chew MD Work Phone: [facility] Comment on above: Visit for screening mammogram Start: 04-03-2022 ambulatory [facility] Start: 04-03-2022 End: 04-03-2022 Office outpatient new 30 minutes Maryanne Tiwari MD Work Phone: [facility] Comment on above: Macromastia (Primary Dx); Chronic back pain, unspecified back location, unspecified back pain laterality Start: 02-19-2022 End: 02-19-2022 Subsequent hospital visit by physician Christina Chew MD Work Phone: [facility] Comment on above: Acquired hypothyroid ism; Essential hypertension Start: 08-29-2021 End: 08-29-2021 Subsequent hospital visit by physician Ayush Martinez PT Work Phone: [facility] Start: 04-11-2021 End: 04-13-2021 Subsequent hospital visit by physician [facility] Comment on above: Visit for screening mammogram Start: 03-07-2020 End: 03-09-2020 [facility] Comment on above: Edema of left lower extremity Start: 03-02-2020 End: 03-04-2020 Subsequent hospital visit by physician Jasbir Additional Xray At [facility] Comment on above: Edema of left lower extremity Acute pain of left k nee Start: 12-29-2019 End: 12-31-2019 Subsequent hospital visit by physician [facility] Comment on above: Visit for screening mammogram Start: 11-15-2019 End: 11-15-2019 Subsequent hospital visit by physician Christina Chew [facility] Comment on above: Hypothyroidism, unsp ecified type; Hypercholesterolemia Start: 04-09-2018 End: 04-09-2018 Patient encounter procedure [facility] Ambulatory Procedures Date Procedure Procedure Detail Performing Clinician Start: 02-19-2022 Basic metabolic pane l calcium total Christina Chew MD Work Phone: Start: 04-11-2021 Screening mammograph y bi 2-view breast inc cad Christina Chew MD Work Phone: Start: 03-07-2020 Dup-scan xtr veins unilateral/limited study Javier Dunaway Work Phone: Start: 03-02-2020 Radex ankle complete minimum 3 views Javier Dunaway Work Phone: Start: 03-02-2020 Radiologic exam knee complete 4/more views Javier Dunaway Work Phone: Start: 03-02-2020 Fibrin dgradj produc ts d-dimer quantitative Javier Dunaway Work Phone: Start: 12-29-2019 Screening mammograph y bi 2-view breast inc cad Christina Chew Work Phone: Start: 11-15-2019 Assay of thyroid stimulating hormone tsh Christina Le Rehanashari Work Phone: Start: 11-15-2019 Lipid panel Christina Perera lópez Work Phone: Start: 11-15-2019 PATIENT FASTING? Christina Chew Work Phone: Start: 03-11-2018 Colonoscopy Ayush Sh kenia PT Work Phone: Plan of Treatment Date Care Activity Detail Author Start: 03-02-2030 DTaP/Tdap/Td vaccine (2 - Td or Tdap) DTaP/Tdap/Td vaccine (2 - Td or Tdap) [facility] Start: 03-02-2030 DTaP/Tdap/Td vaccine (2 - Td) DTaP/Tdap/Td vaccine (2 - Td) [place] Start: 03-02-2030 Tetanus vaccination [facility] Start: 03-11-2028 Screening for malign ant neoplasm of colon [facility] Start: 11-14-2024 Lipid panel [facility] Start: 04-29-2023 Lipid panel Lipid screen [place] Start: 04-11-2023 Screening for malign ant neoplasm of breast Breast cancer screen [facility] Start: 02-24-2023 End: 02-24-2023 Patient encounter procedure 02/24/2023 Office Visit Family Medicine Christina Chew MD [address] [place], [place] [id number] [facility] Start: 02-20-2023 Depression Screen Depression Screen [facility] Start: 01-07-2023 Influenza vaccination Flu vaccine (# 1) [facility] Start: 2022 Pneumococcal 65+ yea rs Vaccine (1 - PCV) Pneumococcal 65+ years Vaccine (1 - PCV) [facility] Start: 08-20-2022 Depression Screen Depression Screen [facility] Start: 02-20-2022 End: 02-20-2022 Patient encounter procedure 02/20/2022 Office Visit Family Medicine Christina Chew MD [address] [place] [address] [facility] Start: 02-07-2022 Influenza vaccination [facility] Start: 01-31-2022 Creatinine measurement Creatinine mo nitoring [facility] Start: 01-31-2022 [facility] Start: 01-31-2022 Thyroid stimulating hormone measurement TSH testing [facility] Start: 12-28-2021 Screening for malign ant neoplasm of breast Breast cancer screen [facility] Start: 09-05-2021 End: 09-05-2021 Patient encounter procedure 09/05/2021 Appointment Physical Therapy Ayush Martinez, PT [address] [place] [address] [facility] Start: 06-28-2021 End: 06-28-2021 Patient encounter procedure 06/28/2021 Office Visit Family Medicine Christina Chew MD [address] [place] [address] [phone] [facility] Start: 03-16-2021 COVID-19 Vaccine (3 - Pfizer booster) COVID-19 Vaccine (3 - Pfizer booster) [facility] Work Phone: Start: 02-14-2021 COVID-19 Vaccine (3 - Booster for Pfizer series) COVID-19 Vaccine (3 - Booster for Pfizer series) [facility] Start: 02-07-2021 Influenza vaccination Flu vaccine (# 1) [facility] Work Phone: Start: 11-14-2020 [place] Start: 11-14-2020 Potassium monitoring Potassium monit [place] Start: 11-14-2020 TSH Qn TSH testing [place] Start: 11-09-2020 COVID-19 VACCINE (3 - Booster for Pfizer series) COVID-19 VACCINE (3 - Booster for Pfizer series) [facility] Start: 11-09-2020 COVID-19 Vaccine (4 - Booster for Pfizer series) COVID-19 Vaccine (4 - Booster for Pfizer series) [facility] Start: 08-19-2020 Screening for malign ant neoplasm of breast Breast cancer screen [place] Start: 05-18-2020 End: 05-18-2020 Office Visit 05/18/2020 Office Visit Family Medicine Christina Chew MD [address] [place] [address] [phone] [facility] Start: 03-07-2020 End: 03-07-2020 Appointment 03/07/2020 Appointment Vascular Lab [facility] Start: 02-08-2020 Influenza vaccination Flu vaccine (# 1) [place] Start: 11-16-2019 End: 11-16-2019 Office Visit 11/16/2019 Office Visit Family Medicine Christina Chew MD [address] [place] [address] [phone] [facility] Start: 04-29-2019 Creatinine measurement Creatinine mo [place] Start: 04-29-2019 Potassium monitoring Potassium monit [place] Start: 04-29-2019 TSH Qn TSH testing [place] Start: 2012 Screening for osteoporosis DEXA (modify frequency per FRAX score) [facility] Start: 11-24-2007 Shingles Vaccine (1 of 2) Shingles Vaccine (1 of 2) [facility] Start: 11-24-2007 Zoster vaccine hzv l shannan for subcutaneous use ZOSTER (SHINGLES) VACCINE (1 of 2) [facility] Start: 2002 Screening for malign ant neoplasm of colon [facility] Start: 1997 Diabetes screen Diabetes screen [place], [place] Start: 1997 Lipid panel LIPID SCREENING [facility] Start: 1997 Screening for malign ant neoplasm of breast MAMMOGRAM SCREENING DISCUSSION [facility] Start: 1992 Diabetes screen Diabetes screen [facility] Start: 1978 Screening for malign ant neoplasm of cervix CERVICAL CANCER SCREENING DISCUSSION [facility] Start: 1976 DTaP/Tdap/Td vaccine (1 - Tdap) DTaP/Tdap/Td vaccine (1 - Tdap) [place] Start: 11-24-1975 Hepatitis C screening Hepatitis C sc reen [facility] Start: 1972 HIV screening [facility] Start: 1957 Hepatitis C screening [facility] Start: 1957 Potassium [Moles/vol ume] in Serum or Plasma POTASSIUM [facility] Start: 1955 Thyroid stimulating hormone measurement TSH [facility] End: 03-07-2020 Lyme disease, western blot Lyme disease, western blot Lab Routine Once for 1 Occurrences starting 03/07/2020 until 03/07/2020 [place] Comment on above: Once for 1 Occurrenc es starting 03/07/2020 until 03/07/2020 Lyme disease, shola n blot Lyme disease, western blot Lab Routine 03/07/2020 2:43 PM EDT [place] End: 01-24-2023 Screening mammography bi 2-view breast inc cad [facility] Comment on above: 1 Occurrences starti ng 01/24/2023 until 01/24/2023 Immunizations Immunization Date Immunization Notes Care Provider Fa [facility] 04-25-2022 Seasonal, quadrivale nt, recombinant, injectable influenza vaccine, preservative free Christina Chew MD Work Phone: [facility] 05-30-2021 influenza virus vaccine, unspecified formulation Ayush Martinez PT Work Phone: [facility] 05-30-2021 Influenza, injectabl e, Madin Jen Canine Kidney, preservative free, quadrivalent Ayush Shade PT Work Phone: [facility] Work Phone: 09-14-2020 COVID-19, Pfizer, PF , 30mcg/0.3mL [facility] Work Phone: 08-24-2020 COVID-19, Pfizer, PF , 30mcg/0.3mL [facility] Work Phone: 04-12-2020 influenza virus vaccine, unspecified formulation [facility] Work Phone: 04-12-2020 influenza, injectabl e, quadrivalent, preservative free [facility] Work Phone: 03-02-2020 tetanus toxoid, redu coco diphtheria toxoid, and acellular pertussis vaccine, adsorbed [facility] 06-07-2019 Influenza, injectabl e, Madin [place] Canine Kidney, preservative free, quadrivalent [facility] [place], [place] 05-14-2018 influenza, injectabl e, quadrivalent, preservative free [facility] Payers Date Payer Category Payer Worker's Compensation [id number] 2022 Medicare [id number] 2019 Private Health Insurance AENYASIA Tamayo ETNA [id number] 2019-Present [address] [place] [address] [id number] 2017 Private Health Insurance AETBLANCA Tamayo ETNA xxxxxxxxxx 2017-Present [phone] [address] [place] [address] xxxxxxxxxx [id number] 2017 Private Health Insurance YASH VILLAGOMEZ [id number] 2017-Present [phone] [address] [place] [address] [id number] 2017 Private Health Insurance [id number] 1955 Unknown [id number] [id number] 1955 Unknown [id number] [id number] 1955 Unknown [id number] [id number] 1955 Unknown [id number] [id number] 1955 Unknown [id number] [id number] 1955 Unknown [id number] [id number] 1955 Unknown [id number] [id number] 1955 Unknown [id number] [id number] Worker's Compensation [id number] Social History Date Type Detail Facility Start: 05-14-2018 End: 02-20-2022 Tobacco smoking status NHIS Never smoker [place] Start: 05-14-2018 End: 01-24-2023 Alcohol intake Current non-drinker of alcohol (finding) [place] Start: 1955 Sex Assigned At Not on file [place] Start: 11-16-2019 End: 02-20-2022 Tobacco use and exposure Never used [facility] H, VLADISLAV Start: 11-16-2019 End: 12-28-2020 History SDOH Financial 5 [place] Start: 11-16-2019 End: 02-20-2022 History SDOH Food Worry 1 [place] Start: 04-03-2022 Alcohol intake Current drinke r of alcohol (finding) [facility] Start: 02-20-2022 History SDOH Financial 4 [facility] History of Present illness Narrative 04-03-2022 Lesvia Avila LPN - 04/03/2022 2:30 PM EDTTneva Tiwari MD - 04/03/2022 2:30 PM EDT Note Date & Type Note Facility 04-03-2022 History of Presen t illness Narrative [facility] Review of Systems: Do you have any of the following: Chills, Fatigue, Fever or Night Sweats: no. Ear pain or eye discharge: no. Hearing loss or visual changes: no. Sore throat or chronic cough: no. Shortness of breath: no. Chest pain, swelling, or heart palpitations: no. Abdominal pain: no. Constipation or diarrhea: no. Heartburn or Nausea: no. Rash or skin problems: no. Dizziness or numbness: no. Headaches or Migraines: no. Seizures: no. Joint pain, joint swelling or muscle weakness: yes. Bruise or bleed easily: no. Any swollen lymph nodes: no. Have you used any nicotine products in the last 3 months? no. Do you use any cannabis, THC or marijuana containing products? no. Are you currently taking the medication Adipex? no. Subjective: Haydee Patricio is an 66 y.o. female who presents today to discuss a breast reduction. Her current bra size is a 40G. Her last mammogram was 04/11/21. She complains of constant neck, shoulder and back pain 1/10 on pain scale. She has been through physical therapy with no relief. She denies any skin issues under breasts. No family history of breast cancer She is due for another mammogram 1 November Allergies Allergen Reactions Penicillins Current Outpatient Medications Medication Sig Dispense Refill amLODIPine 5 MG tablet Take 5 mg by mouth daily. hydroCHLOROthiazide 25 MG tablet Take 25 mg by mouth daily. levothyroxine 112 MCG tablet Take 112 mcg by mouth daily. montelukast 10 MG tablet Take 10 mg by mouth daily. No current facility-administered medications for this visit. Past Medical History: Diagnosis Date Essential hypertension, benign Hypothyroidism Past Surgical History: Procedure Laterality Date TOE SURGERY 2009 HYSTERECTOMY 2001 SECTION 1988 1992 History reviewed. No pertinent family history. Social History Socioeconomic History Marital status: Spouse name: Not on file Number of children: Not on file Years of education: Not on file Highest education level: Not on file Occupational History Not on file Tobacco Use Smoking status: Never Smokeless tobacco: Never Substance and Sexual Activity Alcohol use: Yes Drug use: Never Sexual activity: Not on file Other Topics Concern Not on file Social History Narrative Not on file Social Determinants of Health Financial Resource Strain: Not on file Food Insecurity: Not on file Transportation Needs: Not on file Physical Activity: Not on file Stress: Not on file Social Connections: Not on file Intimate Partner Violence: Not on file Housing Stability: Not on file Review of Systems Pertinent items are noted in HPI. General Plastics Review of Systems: Do you have any of the following: Chills, Fatigue, Fever or Night Sweats: no. Ear pain or eye discharge: no. Hearing loss or visual changes: no. Sore throat or chronic cough: no. Shortness of breath: no. Chest pain, swelling, or heart palpitations: no. Abdominal pain: no. Constipation or diarrhea: no. Heartburn or Nausea: no. Rash or skin problems: no. Dizziness or numbness: no. Headaches or Migraines: no. Seizures: no. Joint pain, joint swelling or muscle weakness: yes. Bruise or bleed easily: no. Any swollen lymph nodes: no. Have you used any nicotine products in the last 3 months? no. Do you use any cannabis, THC or marijuana containing products? no. Are you currently taking the medication Adipex? no. Objective: BP 134/87 Pulse 100 Temp 98.9 F (37.2 C) (Temporal) Ht 1.676 m (5' 6 ) Wt 83.9 kg (185 lb) BMI 29.86 kg/m Smoking Status Never Patient with bilateral mammary hypertrophy. There is no palpable masses or axillary adenopathy. She has bilateral shoulder grooves and hypertrophy of the trapezius muscle. Her shoulders are sloped forward. Sternal notch to N/A R-31cm; L-31cm Estimate 300-400 g removal per side The procedure of Breast reduction was thoroughly reviewed with the patient. The patient's goals and expectation for the surgery were reviewed, as well as the reasonable expected outcome. The expected pre-, intra-, and post- operative course was reviewed. Assessment: Patient for consideration of breast reduction surgery Plan: Pt to Obtain Further Documentation to Support the Need for the Proposed Procedure. We will then submit all the obtained info to the insurance company to obtain pre-authorization. documented in this encounter [facility] History of Present illness Narrative 08-29-2021 Ayush Homero, PT - 08/29/2021 9:00 AM EDT Note Date & Type Note Facility 08-29-2021 History of Present illness Narrative Images from the original note were not included. [facility] Outpatient Physical Therapy Evaluation Date: 08/29/2021 Patient: Haydee Patricio : 1955 Referring Practitioner: Dr. Chew Referral Date : 08/20/21 Diagnosis: Strain of neck muscle Treatment Diagnosis: Cervical pain Onset Date: 08/20/21 PT Insurance Information: [employer] Total # of Visits Approved: 90 Per Physician Order Total # of Visits to Date: 1 No Show: 0 Canceled Appointment: 0 Subjective Additional Pertinent Hx: 2 month onset of right side cervical pain. Denies radicular UE pain. No real positional aggrevation. No increase in headaches or dizziness. No prescribed medication. Continues with daily and work activities but notes right cervical pain. No diagnostic testing. Oswestry . 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 Hand Leisure & Hobbies: Active with daily household tasks Objective Vision Vision: Within Functional Limits Hearing Hearing: Within functional limits Observation/Palpation Posture: Good Palpation: Mild/moderate tightness and tenderness of right SCM and UT as well as along occipital ridge Spine Cervical: Limited right rotation with discomfort and bilateral sidebending; left rotation and flex/ext normal without discomfort Thoracic: Mild tightness with PA mobs right upper thoracic Special Tests: Good C1-2 mobility Strength RUE Strength RUE: WNL Strength LUE Strength LUE: WNL AROM RUE (degrees) RUE AROM : WNL AROM LUE (degrees) LUE AROM : WNL Assessment Assessment: Patient presents with 2 month onset of right cervical pain without etiology. She is limited with cervical rotation right and sidebending but denies headaches or UE distal radicular symptoms. Symptoms suggestive of muscular tightness possibly related to work activities and positioning. Plan to see short term for education on home program of stretching and postural strengthening Prognosis: Good Decision Making: Low Complexity Exam: Oswestry = 650 Clinical Presentation: Stable/Uncomplicated The Following Comorbities will impact the patient s progression and Plan of Care: unremarkable Activity Tolerance: Patient Tolerated treatment well Education: PT POC; Issued written HEP Access Code [email or web address] for chin tucks, cervical stretches and doorway stretches Goals Short term goals Time Frame for Short term goals: 3 visits Short term goal 1: Educate on home program of stretching and postural strengthening ex [facility] goals Time 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 goals : 8 visits intermediate card tender goal 1: Decrease subjective right cervical pain to < 2/10 with daily and work activities intermediate card tender goal 2: Full active cervical mobility without discomfort Patient's Goal: Get rid of this neck pain Timed Code Treatment Minutes: 0 Minutes Total Treatment Time: 50 Time In: 904 Time Out: 954 AYUSH MARTINEZ PT Date: 08/29/2021 documented in this encounter [facility] Phone: Evaluation note Note Date & Type Note Facility Evaluation note Diagnosis Visit for screening mammogram Other screening mammogram documented in this encounter [facility] Phone: Evaluation note Note Date & Type Note Facility Evaluation note Diagnosis Acquired hypothyroidism Unspecified hypothyroidism Essential hypertension Unspecified essential hypertension documented in this encounter [facility] Phone: Evaluation note Note Date & Type Note Facility Evaluation note Diagnosis Macromastia- Primary Hypertrophy of breast Chronic back pain, unspecified back location, unspecified back pain laterality documented in this encounter [facility] Evaluation note Note Date & Type Note Facility Evaluation note Diagnosis Visit for screening mammogram Other screening mammogram documented in this encounter [facility] Summary Purpose Family History No Family History Records FoundNo Family History Records FoundNo Family History Records FoundNo Family History Records FoundNo Family History Records FoundNo Family History Records Found Advance Directives No Advanced Directives Records FoundDocuments on File Type Date Recorded 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 Advance Directives and Living Will Power of Rn Community Health Documents on File Type Date Recorded 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 Advance Directives and Living Will Power of Rn Community Health Documents on File Type Date Recorded 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 ACP-Advance Directive ACP-Power of Rn Community Health Documents on File Type Date Recorded 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 ACP-Advance Directive ACP-Power of Rn Community Health Assessments Diagnosis Hypothyroidism, unspecified type Hypercholesterolemia Pure hypercholesterolemia Diagnosis Visit for screening mammogram Other screening mammogram Diagnosis Edema of left lower extremity Edema Diagnosis Acute pain of left knee Diagnosis Edema of left lower extremity Edema Reason for Referral Status Reason Specialty Diagnoses / Procedures Referre d By Contact Referred To Contact Closed Radiology Diagnoses Visit for screening mammogram Procedures HUGH DIGITAL SCREEN W OR WO CAD BILATERAL HC MAMMOGRAM DIGITAL SCREEN BILAT Christina Chew MD [address] [place] [id number] [facility] [address] [place] [id number] Status Reason Specialty Diagnoses / Procedures Referre d By Contact Referred To Contact Closed Radiology Diagnoses Visit for screening mammogram Procedures HUGH THADDEUS DIGITAL SCREEN BILATERAL Christina Chew MD [address] [place] [phone] Specialty Diagnoses / Procedures Referred By Leland t Referred To Contact Radiology Diagnoses Visit for screening mammogram Procedures HUGH THADDEUS DIGITAL SCREEN BILATERAL Christina Chew MD [address] [place] [id number] Referral ID Status Reason Start Date Expiration Date V isits Requested Visits Authorized [id number] Pending Review 03/25/2022 03/25/2023 1 1 Additional Source Comments INFORMATION SOURCE (unrecogn ized section and content) DATE CREATED AUTHOR 05/02/2018 [facility] DATE CREATED AUTHOR AUTHOR'S ORGANIZ ATION 05/17/2018 [facility] DATE CREATED AUTHOR AUTHOR'S ORGANIZ ATION 04/04/2022 [facility] DATE CREATED AUTHOR AUTHOR'S ORGANIZ ATION 03/17/[address] [facility] DATE CREATED AUTHOR AUTHOR'S ORGANIZ ATION 05/22/2023 [facility] EPIC DATE CREATED AUTHOR AUTHOR'S ORGANIZ ATION 05/26/2023 [facility] Reason for Visit (unrecogniz ed section and content) Status Reason Specialty Diagnoses / Procedures Referre d By Contact Referred To Contact Closed Radiology Diagnoses Visit for screening mammogram Procedures HUGH DIGITAL SCREEN W OR WO CAD BILATERAL HC MAMMOGRAM DIGITAL SCREEN BILAT Christina Chew MD [address] [place] [address] [facility] [address] [place] [address] Status Reason Specialty Diagnoses / Procedures Referred By Contact Referred To Contact Open V[facility] Lab Diagnoses Edema of left lower extremity Procedures VL DUP LOWER EXTREMITY VENOUS LEFT US DUP LOWER EXTREMITY LEFT BOBBY Javier Dunaway, [address] [place] [address] [facility] [address] [place] [address] Status Reason Specialty Diagnoses / Procedures Referre d By Contact Referred To Contact Closed Radiology Diagnoses Visit for screening mammogram Procedures HUGH THADDEUS DIGITAL SCREEN BILATERAL Christina Chew MD [address] [place] [address] Specialty Diagnoses / Procedures Referred By Contac t Referred To Contact Physical Therapy Diagnoses Strain of neck muscle, initial encounter Christina Chew MD [address] [place] [phone] [facility] Physical Therapy [address] [place], [place] [id number] Referral ID Status Reason Start Date Expiration Date V isits Requested Visits Authorized [id number] Open Specialty Services Required 08/20/2021 08/20/2022 1 1 Reason Comments Consult Haydee is here today to discuss a breast reduction. Her current bra size is a 40G. Her last mammogram was 04/11/21. She complains of constant neck, shoulder and back pain 1/10 on pain scale. She has been through physical therapy with no relief. She denies any skin issues under breasts. Specialty Diagnoses / Procedures Referred By Leland candelaria Referred To Contact Plastic Surgery Diagnoses Chronic pain of both shoulders Christina Chew MD [address] [place], [place] [phone] Maryanne Tiwari MD [address] [place] [address] Referral ID Status Reason Start Date Expiration Date V isits Requested Visits Authorized [id number] Pending Review 03/04/2022 03/29/2023 1 1 Specialty Diagnoses / Procedures Referred By Leland candelaria Referred To Contact Radiology Diagnoses Visit for screening mammogram Procedures HUGH THADDEUS DIGITAL SCREEN BILATERAL Christina Chew MD [address] [place] [phone] Referral ID Status Reason Start Date Expiration Date V isits Requested Visits Authorized [id number] Pending Review 03/25/2022 03/25/2023 1 1 Care Teams (unrecognized sec tion and content) Vascular Neurologist Relationship Specialty Start Date End Date Christina Chew MD [address] [place] [id number] PCP - General 07/19/13 Vascular Neurologist Relationship Specialty Start Date End Date Christina Chew MD [address] [place] [id number] PCP - General 07/19/13 Vascular Neurologist Relationship Specialty Start Date End Date Christina Chew MD [address] [place] [address] PCP - General Family Medicine 04/01/22 Vascular Neurologist Relationship Specialty Start Date End Date Christina Chew MD [address] [place] [address] PCP - General 07/19/13 FOR RECORDS PERTAINING TO PATIENTS WHO ARE OR HAVE BEEN ENROLLED IN A CHEMICAL DEPENDENCY/SUBSTANCEABUSE PROGRAM, SOME INFORMATION MAY BE OMITTED. This clinical summary was aggregated from multiple sources. Caution should be exercised in using it in the provision of clinical care. This summary normalizes information from multiple sources, and as a consequence, information in this document may materially change the coding, format and clinical context of patient data. In addition, data may be omitted in some cases. CLINICAL DECISIONS SHOULD BE BASED ON THE PRIMARY CLINICAL RECORDS. [facility] [employer] [facility]. provides no warranty or guarantee of the accuracy or completeness of information in this document.
--- NOTE | 2023-07-04 12:04 | MR_ITS ---
The [address] [address] Patient Name: ROBERT PATRICIO MRN: [id number] date: 1955 Sex: F Assigned Patient Location: MRI Current Patient Location: MRI Accession/Order Number: [id number] Exam Date: 07/04/2023 12:30 Report Date: 07/04/2023 15:15 At the request of: NICA HA Procedure: MR wrist LT wo con HISTORY: Left wrist and hand pain since an injury at work on 05/24/2023. Pain along the radial aspect of the wrist. Left wrist sprain. MRI left wrist 07/04/2023. MRI left hand 07/04/2023. COMPARISON: Radiographs left wrist 06/11/2023. TECHNIQUE: Multiplanar, multisequence MRI images of the left wrist and hand were obtained. FINDINGS: Left wrist: Several images are degraded by motion artifact. LIGAMENTS AND TFCC: The scapholunate ligament complex and lunotriquetral ligament appear intact. The triangular fibrocartilage complex appears grossly intact. BONES AND JOINTS: The bone marrow signal intensity appears age appropriate. There is an oblique, mildly comminuted, nondisplaced intra-articular fracture of the distal radius with a moderate amount of adjacent bone marrow edema. There are moderate degenerative changes of the triscaphe joint. There are severe degenerative changes again seen of the first carpometacarpal joint. There is subchondral bone marrow edema involving the trapezium and the base of the first metacarpal adjacent to the joint. 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 TENDONS: The tendons of the wrist appear grossly within normal limits without evidence of significant tendinopathy or tenosynovitis. CARPAL TUNNEL: The visualized median nerve appears grossly within normal limits and no space-occupying mass is seen in the carpal tunnel. MUSCLES AND SOFT TISSUES: The visualized musculature appears grossly within normal limits in signal intensity. No significant soft tissue swelling is seen. Left hand: Several images are degraded by motion artifact. The bone marrow signal intensity is age appropriate. There appear to be at least moderate degenerative changes of the first MCP joint with subchondral cystic change in the first metacarpal head. There also appear to be at least mild degenerative changes of the second and third MCP joints. No bone marrow edema-like signal is seen. No muscle edema is identified. There is no significant soft tissue swelling. No tendinopathy or tenosynovitis is seen. MR/MR wrist LT wo con IMPRESSION: 1. There is an oblique, mildly comminuted, nondisplaced intra-articular fracture of the distal radius with a moderate amount of surrounding bone marrow edema. No other fracture of the wrist or hand is seen. 2. No ligament injury or tear of the TFCC is seen. 3. 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 There also appears to be mild osteoarthritis of the second and third MCP joints. 4. 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 This report was placed in the wet read folder to be faxed and called to the referring clinician's office (Nica Ha) on the afternoon of 07/04/2023 shortly after the study was presented for interpretation. Electronically authenticated by: ARMIDA CANDELARIO Date: 07/04/2023 15:15
--- NOTE | 2023-07-04 12:04 | MR_ITS ---
The [address] [address] Patient Name: ROBERT PATRICIO MRN: [id number] date: 1955 Sex: F Assigned Patient Location: MRI Current Patient Location: MRI Accession/Order Number: [id number] Exam Date: 07/04/2023 12:30 Report Date: 07/04/2023 15:15 At the request of: NICA HA Procedure: MR hand LT wo con HISTORY: Left wrist and hand pain since an injury at work on 05/24/2023. Pain along the radial aspect of the wrist. Left wrist sprain. MRI left wrist 07/04/2023. MRI left hand 07/04/2023. COMPARISON: Radiographs left wrist 06/11/2023. TECHNIQUE: Multiplanar, multisequence MRI images of the left wrist and hand were obtained. FINDINGS: Left wrist: Several images are degraded by motion artifact. LIGAMENTS AND TFCC: The scapholunate ligament complex and lunotriquetral ligament appear intact. The triangular fibrocartilage complex appears grossly intact. BONES AND JOINTS: The bone marrow signal intensity appears age appropriate. There is an oblique, mildly comminuted, nondisplaced intra-articular fracture of the distal radius with a moderate amount of adjacent bone marrow edema. There are moderate degenerative changes of the triscaphe joint. There are severe degenerative changes again seen of the first carpometacarpal joint. There is subchondral bone marrow edema involving the trapezium and the base of the first metacarpal adjacent to the joint. 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 TENDONS: The tendons of the wrist appear grossly within normal limits without evidence of significant tendinopathy or tenosynovitis. CARPAL TUNNEL: The visualized median nerve appears grossly within normal limits and no space-occupying mass is seen in the carpal tunnel. MUSCLES AND SOFT TISSUES: The visualized musculature appears grossly within normal limits in signal intensity. No significant soft tissue swelling is seen. Left hand: Several images are degraded by motion artifact. The bone marrow signal intensity is age appropriate. There appear to be at least moderate degenerative changes of the first MCP joint with subchondral cystic change in the first metacarpal head. There also appear to be at least mild degenerative changes of the second and third MCP joints. No bone marrow edema-like signal is seen. No muscle edema is identified. There is no significant soft tissue swelling. No tendinopathy or tenosynovitis is seen. MR/MR hand LT wo con IMPRESSION: 1. There is an oblique, mildly comminuted, nondisplaced intra-articular fracture of the distal radius with a moderate amount of surrounding bone marrow edema. No other fracture of the wrist or hand is seen. 2. No ligament injury or tear of the TFCC is seen. 3. 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 There also appears to be mild osteoarthritis of the second and third MCP joints. 4. 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 This report was placed in the wet read folder to be faxed and called to the referring clinician's office (Nica Ha) on the afternoon of 07/04/2023 shortly after the study was presented for interpretation. Electronically authenticated by: ARMIDA CANDELARIO Date: 07/04/2023 15:15
== END 2023-07-04 11:59 | disposition home or self-care (01) ==
LOC: MRI 11:58
PROVIDERS: PCP Family Medicine; Visit Provider Nurse Practitioner Family
DX: S63.502A Unspecified sprain of left wrist, initial encounter (principal); S52.572A Other intraarticular fracture of lower end of left radius, initial encounter for closed fracture; M18.12 Unilateral primary osteoarthritis of first carpometacarpal joint, left hand; M19.042 Primary osteoarthritis, left hand
CPT/HCPCS: 73218; 73221